=== PATIENT | female | born 1990 | race Caucasian/White ===

== ENCOUNTER 2021-07-01 12:07 | Emergency (ER) | payer OTHER ==
[2021-07-01] MEDS ORDERED: CYCLOBENZAPRINE5 MG PO (14:34)
[2021-07-01] MEDS ORDERED: ONDANSETRON ODT4 MG SL (14:34)
[2021-07-01] MEDS ORDERED: IMITREX50 MG PO (14:34)
[2021-07-01] MEDS ORDERED: NAPROSYN500 MG PO (14:34)
== END 2021-07-01 14:44 | disposition home or self-care (01) ==
LOC: ER1 12:07
DX: G43.909 Migraine, unspecified, not intractable, without status migrainosus (principal); F17.200 Nicotine dependence, unspecified, uncomplicated
CPT/HCPCS: 96372; 99283; J3030